=== PATIENT | female | born 1950 | race Caucasian/White ===

== ENCOUNTER 2019-09-13 13:07 | Outpatient (CLI) | payer MEDICARE, OTHER, SELFPAY ==
--- NOTE | 2019-09-13 13:30 | USCV_ITS ---
Lashay Castro Age: 69 Gender: F : 1950 Exam Date: 09/13/2019 13:46 Ordering Phys: Rhianna Chavez Technologist: Tiana Bello Exam Location: [facility] [place] Indication: HISTORY: spider veins bilateral ankle/calf. Bilateral leg pain. Multiple Sclerosis (per patient). Has been wearing compression stockings in recent past. Removed a few days prior to insufficiency study. PROCEDURES: Bilateral duplex Venous Insufficiency study of the Deep and Superficial systems was carried out according to normal protocol with the patient in supine positon for deep system and dependent position for the superficial system. FINDINGS: No DVT or superficial thrombus in right or left leg Right leg exhibits reflux in SFJ at 0.933 seconds. GSV appears very superficial. Left leg exhibits reflux in SFJ at 1.43 seconds and GSV BK segment at 5.54+ seconds. GSV becomes superfical at The veins were found to be easily compressible with spontaneous blood flow. Non pulsatile flow pattern. CONCLUSIONS No evidence of DVT in the above-mentioned identifiable veins. Significant venous reflux of greater than 500 ms was noted at the right saphenofemoral junction Significant venous reflux of greater than 500 ms were noted on the left side at the saphenofemoral junction and at the below-knee greater saphenous vein segment. No significant venous reflux were noted in the deep veins. The venous dimensions, depth from the surface and the reflux times are as mentioned above Dr Farrah Lua MD [facility] (Electronically Signed) Final Date: 14 September 2019 10:35 S
== END 2019-09-13 13:08 | disposition home or self-care (01) ==
PROVIDERS: Family Provider Family Medicine; PCP Family Medicine; Visit Provider Nurse Practitioner
DX: I83.893 Varicose veins of bilateral lower extremities with other complications (principal)
CPT/HCPCS: 93970

== ENCOUNTER 2019-09-17 07:26 | Outpatient (REF) | payer MEDICARE, OTHER, SELFPAY ==
[2019-09-17 13:31] LABS: Chol HDL Ratio 5.31 mg/dL (0.0-4.40); Cholesterol 154 mg/dL (0-200); Glucose 78 mg/dL (65-115); HDL Cholesterol 29 mg/dL (60-100); LDL Cholesterol Calculated 56 mg/dL (50-129); LDL HDL Ratio 1.93 RATIO (0.00-3.22); Triglycerides 346 mg/dL (0-150)
[2019-09-17 13:51] LABS: Estmated Average Glucose 123; Hemoglobin A1C 5.9 % (4.0-6.0)
== END 2019-09-17 07:27 | disposition home or self-care (01) ==
LOC: LAB 07:26
PROVIDERS: Family Provider Family Medicine; PCP Family Medicine; Visit Provider Dermatology
DX: Z01.89 Encounter for other specified special examinations (principal)
CPT/HCPCS: 80061; 82947; 83036

== ENCOUNTER → 2019-09-20 10:09 | Outpatient (BNVA) | payer MEDICARE, OTHER, SELFPAY | PROVIDERS: Family Provider Family Medicine; PCP Family Medicine; Visit Provider Specialist | DX: Z48.89 Encounter for other specified surgical aftercare (principal); Z96.653 Presence of artificial knee joint, bilateral | CPT/HCPCS: 73560; 73565 ==

== ENCOUNTER 2019-10-07 09:43 | Outpatient (CLI) | payer MEDICARE, OTHER, SELFPAY ==
--- NOTE | 2019-10-07 10:15 | USCV_ITS ---
Lashay Castro Age: 69 Gender: F : 1950 Exam Date: 10/07/2019 10:09 Ordering Phys: Fara Byrd Technologist: Tiana Bello Exam Location: [facility] [place]_ Indication: post venaseal RT GSV HISTORY: post right GSV venaseal PROCEDURES: Venous duplex imaging was performed in only the right lower extremity. On the right side, the common femoral, superficial femoral, profunda femoral, popliteal, posterior tibial, greater saphenous veins and the peroneal trunk were identified and interrogated in the standard fashion. These veins were found to be easily compressible with spontaneous blood flow. FINDINGS: No DVT. GSV appears to be ablated on the right from right HC area to groin. SFJ and epigastric veins appear patent. CONCLUSIONS No evidence of DVT in the above-mentioned identifiable veins. Patent saphenofemoral junction and the inferior epigastric vein The greater saphenous vein appears to be ablated, beyond the epigastric vein Dr Farrah Lua MD [facility] (Electronically Signed) Final Date: 08 October 2019 09:31 S
== END 2019-10-07 09:44 | disposition home or self-care (01) ==
LOC: US 09:44
PROVIDERS: Family Provider Family Medicine; PCP Family Medicine; Visit Provider Specialist/Technologist Athletic Trainer
DX: I83.893 Varicose veins of bilateral lower extremities with other complications (principal)
CPT/HCPCS: 93971

== ENCOUNTER 2019-10-15 09:44 | Outpatient (CLI) | payer MEDICARE, OTHER, SELFPAY ==
--- NOTE | 2019-10-15 09:52 | USCV_ITS ---
Castro Lashay Age: 69 Gender: F : 1950 Exam Date: 10/15/2019 10:06 Ordering Phys: Fara Byrd Technologist: Dev Schmidt Exam Location: [facility] [place]_ Indication: LT LEG POST ABLATION FINDINGS: The femoral, profunda femoral, popliteal, peroneal trunk posterior tibial veins were found to be easily compressible with spontaneous flow. CONCLUSIONS No evidence of DVT in the above-mentioned identifiable veins. The saphenofemoral junction and the inferior epigastric vein on the right side were found to be patent The greater saphenous vein appears to be ablated Dr Farrah Lua MD [facility] (Electronically Signed) Final Date: 15 October 2019 13:42 S
== END 2019-10-15 09:45 | disposition home or self-care (01) ==
LOC: US 09:45
PROVIDERS: Family Provider Family Medicine; PCP Family Medicine; Visit Provider Specialist/Technologist Athletic Trainer
DX: I83.893 Varicose veins of bilateral lower extremities with other complications (principal)
CPT/HCPCS: 93971

== ENCOUNTER → 2020-06-13 15:50 | Outpatient (BNVA) | payer MEDICARE, OTHER, SELFPAY | PROVIDERS: Family Provider Family Medicine; PCP Family Medicine; Visit Provider Podiatrist Foot & Ankle Surgery | DX: M79.671 Pain in right foot (principal); M79.672 Pain in left foot; M21.611 Bunion of right foot | CPT/HCPCS: 73630 ==

== ENCOUNTER 2020-07-10 15:27 | Outpatient (CLI) | payer MEDICARE, OTHER, SELFPAY | END 2020-07-10 15:28 | disposition home or self-care (01) | LOC: SPT 15:28 | PROVIDERS: Family Provider Family Medicine; PCP Family Medicine; Visit Provider Podiatrist Foot & Ankle Surgery | DX: Z46.89 Encounter for fitting and adjustment of other specified devices (principal); M21.41 Flat foot [pes planus] (acquired), right foot; M21.42 Flat foot [pes planus] (acquired), left foot | CPT/HCPCS: 97760; L3030 ==

== ENCOUNTER 2020-12-06 07:43 | Outpatient (CLI) | payer MEDICARE, OTHER, SELFPAY ==
[2020-12-06 08:19] VITALS: BMI 33.3
--- NOTE | 2020-12-06 08:23 | ECG_ITS ---
[facility] Test Date: 2020-12-06 Pat Name: Lashay Castro Department: Room: Gender: Female Train Engineer: : 1950 Requested By: Flores López Order Number: [id number] Marita MD: Paco Funes M.D. Interpretive Statements NAME OF STUDY: LEXISCAN SESTAMIBI STRESS TEST INDICATION: [Chest Pain] Procedure: At the baseline, the blood pressure was 146/65 mmHg with a heart rate of 68 bpm. The electrocardiogram showed normal sinus rhythm, normal axis with normal ST and T's. The Lexiscan was infused over a period of 20 seconds. A total of 0.4 mg of Lexiscan was infused. The stress phase was continued for a total of 5 minutes. Heart rate was at the end of stress phase was 82 bpm and a blood pressure of 148/81 mmHg. The EKG at the peak infusion revealed since normal sinus rhythm with no significant ST-T wave changes. Sestamibi was injected 20 seconds after the Lexiscan infusion. Blood pressure at the end of recovery phase was 128/87 mmHg with a heart rate of 83 bpm. Conclusion: 1. Normal EKG response to Lexiscan infusion 2. No Lexiscan induced chest pain or cardiac arrhythmia. 3. Normal blood pressure and heart rate response. 4. Sestamibi/sestamibi perfusion scan pending; see separate report. Electronically Signed On 12-16-2020 12:17:49 CDT by Paco Funes M.D. [id number]
--- NOTE | 2020-12-06 08:24 | NMCV_ITS ---
NM jong perf SPECT r/s* [id number] Lashay Castro Age: 70 Gender: F : 1950 Exam Date: 12/06/2020 09:19 Ordering Phys: Flores Lizama MD Technologist: KEISHA Mckeon Exam Location: [facility] Indications: CHEST PAIN STRESS TEST [facility] IMAGE PROTOCOL Rest/Stress 1 Lexiscan Day Radiopharmaceutical Dose (mCi) Administration Site Administered by Rest: Tc-99m 10.8 IV KEISHA Pearl Sestamibi Stress:Tc-99m 31.9 IV KEISHA Mckeon Sestamitimmy Rest: 06-Dec-2020 60 Discovery 630 Stress: 06-Dec-2020 30 Discovery 630 0.4mg Lexiscan. Images obtained in supine and prone position. SPECT RESULTS Technical Quality: Good Raw Data Analysis: Breast attenuation Image Corrections: No attenuation or motion correction applied Summed Stress Score: 3 Summed Rest Score: 1 Summed Difference Score: 2 PERFUSION FINDINGS There is a small in size, partially reversible, partially reversible perfusion defect of the apical lateral and mid lateral salazar. It likely represents prior small infarct with kinjal-infarct ischemia FUNCTIONAL RESULTS (calculated via Gated SPECT) Stress Image LV EF (%): 69 Stress EDV (mL):81 TID: 0.88 Stress ESV (mL):25 FUNCTIONAL FINDINGS: There is normal left ventricular systolic function. IMPRESSIONS 1. Abnormal myocardial perfusion imaging with partially reversible, small sized perfusion defect in apical lateral and mid lateral salazar. This is consistent with small prior infarct with periinfarct ischemia in the Left circumflex artery distribution 2. LV systolic function is normal Paco Funes MD (Electronically Signed) Final Date: 06 December 2020 12:21 S
[2020-12-06] MEDS: regadenoson 0.4 Mg/5 ml Syringe IVP (09:58)
[2020-12-06 10:07] VITALS: BP 128/87; PULSE 83
== END 2020-12-06 07:44 | disposition home or self-care (01) ==
LOC: CDL 07:46
PROVIDERS: PCP Family Medicine; Visit Provider Family Medicine
DX: R07.9 Chest pain, unspecified (principal)
CPT/HCPCS: 78452; 93017; A9500; J2785

== ENCOUNTER 2021-04-30 13:09 | Emergency (ER) | payer MEDICARE, OTHER, SELFPAY ==
[2021-04-30 13:47] VITALS: BP 104/68; PULSE 88; RESP 16; TEMP 37.7; O2SAT 91
--- NOTE | 2021-04-30 16:53 | XRR_ITS ---
PROCEDURE INFORMATION: Exam: XR Chest Exam date and time: 04/30/2021 4:53 PM Age: 70 years old Clinical indication: Cough and shortness of breath; Prior surgery TECHNIQUE: Imaging protocol: XR of the chest. Views: 1 view. COMPARISON: CR XR knees AP WB w RT lmt ORTH 09/20/2019 10:14 AM FINDINGS: Tubes, catheters and devices: Spinal stimulator. Lungs: Emphysematous changes. Bibasilar left greater than right atelectasis versus infiltrate. Pleural spaces: Unremarkable. No pleural effusion. No pneumothorax. Heart/Mediastinum: Unremarkable. No cardiomegaly. Bones/joints: Unremarkable. XR/XR chest 1V portable [id number] IMPRESSION: 1. Emphysematous changes. 2. Bibasilar left greater than right atelectasis versus infiltrate.
--- NOTE | 2021-04-30 16:54 | ED_ITS ---
HPI - COVID General: Chief Complaint: COVID symptoms Stated Complaint: COVID +/TROUBLE BREATHING Time Seen by Provider: 04/30/21 16:50 Triage information: No known COVID + exposure last 14 days History of Present Illness: HPI Narrative: This patient is a 70-year-old female who presents to the emergency department with complaints of shortness of breath and viral type syndrome. Patient states she was just diagnosed with Covid last week and symptoms started getting worse on Friday. Patient's O2 sat on room air is 92 to 95%. Will do medical evaluation treat as needed MD complaint: known COVID positive and has COVID symptoms COVID 19 common symptoms: positive dyspnea; negative fever(s), chills, non- productive cough, productive cough, fatigue, body aches, headache(s), throat pain, nausea or vomiting COVID 19 other sytmptoms: negative chest pain COVID Results: No Data to Display Review of Systems General: Reports: 10 or more systems reviewed and unremarkable except in HPI and below Const: Denies: fever(s), chills, body aches or fatigue Eyes: Denies: change in vision or blurry vision ENMT: Denies: throat pain, hoarseness or mouth pain Card: Denies: chest pain, palpitations, irregular heart rhythm, edema, swelling of feet/ankles or lightheadedness Resp: Reports: dyspnea; Denies: productive cough, non-productive cough, wheezing or pain on inspiration GI: Denies: abdominal pain, nausea or vomiting : Denies: flank pain, difficulty voiding, dysuria, urinary frequency, urinary urgency or urinary hesitancy Musc: Denies: neck pain, back pain, extremity pain, extremity swelling, joint pain, joint swelling, joint redness, joint warmth or limited range of motion Skin/Breast: Denies: rash, pruritus, erythema or skin tenderness Neuro: Denies: headache(s), numbness in extremities or weakness in extremities Psych: Denies: anxiety or depression PFS ED PFSH: Medical History (Updated 04/30/21 @ 17:39 by Ned Childs MD) COPD (chronic obstructive pulmonary disease) Diverticulosis Dysphagia Keratosis Multiple sclerosis Obstructive sleep apnea PVD (peripheral vascular disease) Venous insufficiency of both lower extremities Surgical History History of adenoidectomy (~1970) History of appendectomy History of arthroscopy of knee (~2010) Left History of bunionectomy (~2013) left History of carpal tunnel release History of colon resection History of colonoscopy (07/12/19) 07/12/19 Repeat in 10 years History of esophagogastroduodenoscopy (EGD) (07/12/19) 07/12/19 History of hysterectomy History of knee replacement (09/03/06) Right History of neck surgery History of Pepper fundoplication History of shoulder surgery History of tonsillectomy (~1970) Family History Sister Cancer Family/Other Cancer Maternal Aunt Family/Other Cancer Paternal Uncle Father Diabetes Other Heart disease Denies family history of Anesthesia complication Bleeding disorder Social History Smoking and tobacco status: former smoker Alcohol intake: current Alcohol intake frequency: holidays/special occasions only Lives independently: Yes Household members: spouse Marital status: Current occupational status: retired Physical Exam Const: COMMON NORMALS: no acute distress, average body habitus, patient oriented x3, no limitations, healthy appearing, alert and well nourished HENMT: COMMON NORMALS: normocephalic, atraumatic, hearing grossly normal bilaterally, external ears normal, EAC's normal, TM's normal bilaterally, Normal external nose present, Normal nasal mucous membranes and turbinates present, moist oral mucous membranes, oropharynx normal, dentition normal and gingiva normal HEAD & SCALP: normocephalic and atraumatic NOSE: Normal external nose present and Normal nasal mucous membranes and turbinates present EXTERNAL EAR: Yes external ears normal EXTERNAL AUDITORY CANAL: EAC's normal TYMPANIC MEMBRANE: TM's normal bilaterally Neck/C-Spine: COMMON NORMALS: full ROM, no lymphadenopathy, supple, no meningeal signs, no JVD, Thyroid normal and No carotid bruits THYROID: Thyroid normal Chest: COMMONS NORMALS: normal inspection of the chest, normal palpation of entire chest wall, normal inspection of the breasts and normal palpation of the breasts Breast/axilla inspection: Yes normal inspection of the breasts BREAST/AXILLA PALPATION: Yes normal palpation of the breasts Resp: COMMON NORMALS: normal respiratory effort, No retractions, No use of accessory muscles, clear to auscultation bilaterally and percussion normal AUSCULTATION: clear to auscultation bilaterally PERCUSSION: percussion normal Cardio: COMMON NORMALS: no JVD, regular rate, regular rhythm, S1 normal heart sound present, S2 normal heart sound present, No gallops present (Cardio), No clicks present (Cardio), No murmurs present (Cardio), No rub (Cardio) and Peripheral pulses 2+ throughout RATE: regular rate RHYTHM: regular rhythm HEART SOUNDS: S1 normal heart sound present and S2 normal heart sound present PERIPHERAL PULSES: Peripheral pulses 2+ throughout GI: COMMON NORMALS: Normal to inspection, nondistended, normoactive bowel rené nds present, Soft to palpation, non-tender, No hepatosplenomegaly present, no masses and no bruits PALPATION: Yes Soft to palpation and Yes No hepatosplenomegaly present Back/Pelvis: COMMON NORMALS: thoracic and lumbar spine normal to inspection, no thoracic nor lumbar tenderness, thoraco-lumbar ROM normal and straight leg raise negative bilaterally Extremity: COMMON NORMALS: normal to inspection, full ROM, capillary refill normal, no joint enlargement, no clubbing, cyanosis or edema, no calf tenderness and no pedal edema Neuro: COMMON NORMALS: patient oriented x3 SENSORIUM/ORIENTATION: Yes alert MENINGEAL SIGNS: Yes no meningeal signs Course Reevaluation(s): Reevaluation #1: Patient is stable with COVID-19. Patient's pulse ox continues to maintain around 93 to 95% on room air. Chest x-ray consistent with COVID-19. Patient will be discharged home with cool-mist humidifier. Albuterol puff inhaler as instructed. Continue drink plenty of fluids and follow-up with PCP in 2 to 3 days. Get plenty rest. Tylenol Motrin as needed for fever pain. Time: 17:38 Vital Signs: Vital signs: Vital Signs Temperature 98.6 F 04/30/21 17:19 Pulse Rate 85 04/30/21 17:19 Respiratory Rate 20 H 04/30/21 17:19 Blood Pressure 144/81 04/30/21 17:19 Pulse Oximetry 93 04/30/21 17:26 MDM - COVID MDM Narrative: Medical decision making narrative: Patient is stable with COVID-19. Patient's pulse ox continues to maintain around 93 to 95% on room air. Chest x-ray consistent with COVID-19. Patient will be discharged home with cool-mist humidifier. Albuterol puff inhaler as instructed. Continue drink plenty of fluids and follow-up with PCP in 2 to 3 days. Get plenty rest. Tylenol Motrin as needed for fever pain. Medical Records: Attestation: I reviewed the patient's medical records. Lab Data: Attestation: I reviewed the patient's lab results. Imaging Data: CXR: Attestation: I personally reviewed and interpreted this imaging study as follows: Radiologist's impression: Patchy Infiltrate consistant with COVID COVID Results: No Data to Display Discharge Plan Discharge Patient Disposition: Home Clinical Impression: Upper respiratory infection, COVID-19 Condition: Stable Prescriptions: New albuterol sulfate 90 mcg/actuation HFA aerosol inhaler 2 puff inhalation Q4H PRN (Reason: shortness of breath or wheezing) Qty: 8.5 RF: 0 No Action ondansetron HCl [Zofran] 4 mg tablet 4 mg PO Q6H PRNRF: 0 pantoprazole [Protonix] 40 mg tablet,delayed release (DR/EC) 40 mg PO ONCE RF: 0 jfppjsyqvkmr-evofuquuz-pijigba 6.25-5-10 mg/5 mL syrup 5 ml PO ONCE RF: 0 tramadol 50 mg tablet 50 mg PO .COMPLEX RF: 0 venlafaxine 25 mg tablet 25 mg PO ONCE RF: 0 biotin 100 mg/gram powder PO RF: 0 Dexilant 30 mg capsule,biphase delayed releas 30 mg PO ONCE RF: 0 acetaminophen 500 mg capsule 500 mg PO .COMPLEX RF: 0 diltiazem HCl [Cartia XT] 300 mg capsule,extended release 24hr 300 mg PO QAM RF: 0 Combivent Respimat 20-100 mcg/actuation mist 1 puff INHALATION .COMPLEX RF: 0 fluticasone propionate 50 mcg/actuation spray,suspension 1 spray INTRANASAL .COMPLEX PRNRF: 0 furosemide 20 mg tablet 20 mg PO QAM RF: 0 losartan 25 mg tablet 25 mg PO ONCE RF: 0 Myrbetriq 25 mg tablet extended release 24 hr 25 mg PO Q24H RF: 0 potassium chloride 10 mEq capsule, extended release 10 meq PO ONCE RF: 0 Restasis 0.05 % dropperette 1 drop ophthalmic (eye) Q12H RF: 0 cholecalciferol (vitamin D3) 5,000 unit capsule 5,000 unit PO ONCE RF: 0 (DME) Sole supports See Rx Instructions .Route .MEDSUPPLY Qty: 1 RF: 0 Discharge Orders: Discharge ED (Routine); Ordered 04/30/21 Ordered By: Ned Childs Referrals: Flores Lizama MD [Primary Care Provider] - Discharge Diet: Advance as tolerated Discharge Activity: Resume usual activity Patient Instructions: Opioid Safety Activity Restrictions/Additional Instructions: Patient will be discharged home with cool-mist humidifier. Albuterol puff inhaler as instructed. Continue drink plenty of fluids and follow-up with PCP in 2 to 3 days. Get plenty rest. Tylenol Motrin as needed for fever pain. Coding Level of Care Code ED Branding Machine Tender for Derick Fwd Exam Comprehensive
[2021-04-30 17:19] VITALS: BP 144/81; PULSE 85; RESP 20; TEMP 37; O2SAT 93
[2021-04-30 17:26] VITALS: O2SAT 93
[2021-04-30] MEDS: dexamethasone 10 mg/mL INJ IM (17:34)
[2021-04-30 17:50] VITALS: PULSE 78; RESP 18; O2SAT 93
[2021-04-30] MEDS: albuterol 8 gm MDI 2 PUFF INHALATION (18:03)
[2021-04-30 18:05] VITALS: PULSE 80
[2021-04-30 18:20] VITALS: BP 145/75; PULSE 88; RESP 20; TEMP 36.8; O2SAT 93
== END 2021-04-30 18:39 | disposition home or self-care (01) ==
PROVIDERS: Emergency Provider Emergency Medicine; PCP Family Medicine
DX: U07.1 COVID-19 (principal); J44.9 Chronic obstructive pulmonary disease, unspecified; G35 Multiple sclerosis; Z87.891 Personal history of nicotine dependence
CPT/HCPCS: 71045; 94640; 96372; 99283; J1100; J3535

== ENCOUNTER 2021-05-01 07:47 | Outpatient (CLI) | payer MEDICARE, OTHER, SELFPAY ==
[2021-05-01 08:00] VITALS: BP 101/65; PULSE 65; RESP 22; TEMP 36.4; O2SAT 93; BMI 32.3
[2021-05-01 08:35] VITALS: BP 98/63; PULSE 66; RESP 22; TEMP 36.4; O2SAT 90
[2021-05-01 09:35] VITALS: BP 106/63; PULSE 55; RESP 22; TEMP 36.4
== END 2021-05-01 07:48 | disposition home or self-care (01) ==
LOC: OPS 07:52
PROVIDERS: PCP Family Medicine; Visit Provider Family Medicine
DX: U07.1 COVID-19 (principal)
CPT/HCPCS: 96365

== ENCOUNTER 2021-06-19 13:24 | Outpatient (CLI) | payer MEDICARE, OTHER, SELFPAY ==
--- NOTE | 2021-06-19 13:33 | MM_ITS ---
WS: [id number] BILATERAL SCREENING DIGITAL MAMMOGRAM WITH CAD HISTORY: SCREENING COMPARISON: 05/04/2020, 11/02/2018 and 09/04/2017 Bilateral CC and MLO views submitted. Computer aided detection analyzed. Breast composition: There are scattered areas of fibroglandular density. No suspicious masses, microc alcifications or architectural distortion. There are numerous calcifications and scattered stable nod ules throughout each breast. MM/[place] [id number] IMPRESSION: BI-RADS: 2-Benign FOLLOW UP: 1 Year Follow-up
== END 2021-06-19 13:25 | disposition home or self-care (01) ==
PROVIDERS: PCP Family Medicine; Visit Provider Family Medicine
DX: Z12.31 Encounter for screening mammogram for malignant neoplasm of breast (principal)
CPT/HCPCS: 77067

== ENCOUNTER → 2023-03-03 15:02 | Outpatient (BNVA) | payer MEDICARE, OTHER, SELFPAY | PROVIDERS: PCP Family Medicine; Visit Provider Podiatrist Foot & Ankle Surgery | DX: M20.41 Other hammer toe(s) (acquired), right foot (principal); M20.42 Other hammer toe(s) (acquired), left foot | CPT/HCPCS: 99213 ==

== ENCOUNTER → 2023-04-04 08:02 | Outpatient (BNVA) | payer MEDICARE, OTHER, SELFPAY | PROVIDERS: PCP Family Medicine; Visit Provider Nurse Practitioner Family | DX: L80 Vitiligo (principal); L30.4 Erythema intertrigo; L82.0 Inflamed seborrheic keratosis; D18.01 Hemangioma of skin and subcutaneous tissue; L82.1 Other seborrheic keratosis; L57.8 Other skin changes due to chronic exposure to nonionizing radiation; L85.3 Xerosis cutis; L81.4 Other melanin hyperpigmentation | CPT/HCPCS: 17110; 99204 ==

== ENCOUNTER → 2023-04-07 16:20 | Outpatient (BNVA) | payer MEDICARE, OTHER, SELFPAY | PROVIDERS: PCP Family Medicine; Visit Provider Internal Medicine Cardiovascular Disease | DX: R07.9 Chest pain, unspecified (principal); R00.0 Tachycardia, unspecified; G47.33 Obstructive sleep apnea (adult) (pediatric); J44.9 Chronic obstructive pulmonary disease, unspecified; I10 Essential (primary) hypertension; R07.89 Other chest pain | CPT/HCPCS: 93005; 99204 ==

== ENCOUNTER → 2023-06-16 12:30 | Outpatient (BNVA) | payer MEDICARE, OTHER, SELFPAY | PROVIDERS: PCP Family Medicine; Visit Provider Nurse Practitioner Family | DX: I10 Essential (primary) hypertension (principal); Z87.891 Personal history of nicotine dependence | CPT/HCPCS: 99213 ==

== ENCOUNTER → 2023-06-18 07:25 | Outpatient (BNVA) | payer MEDICARE, OTHER, SELFPAY | PROVIDERS: PCP Family Medicine; Visit Provider Podiatrist Foot & Ankle Surgery | DX: M79.2 Neuralgia and neuritis, unspecified (principal); M20.41 Other hammer toe(s) (acquired), right foot; M20.42 Other hammer toe(s) (acquired), left foot | CPT/HCPCS: 64450; J1100; J3490 ==

== ENCOUNTER → 2023-07-07 08:28 | Outpatient (BNVA) | payer MEDICARE, OTHER, SELFPAY | PROVIDERS: PCP Family Medicine; Visit Provider Nurse Practitioner Family | DX: L30.4 Erythema intertrigo (principal); L82.0 Inflamed seborrheic keratosis; L82.1 Other seborrheic keratosis; D22.5 Melanocytic nevi of trunk; L81.4 Other melanin hyperpigmentation; L57.8 Other skin changes due to chronic exposure to nonionizing radiation; L80 Vitiligo | CPT/HCPCS: 17110; 99214 ==

== ENCOUNTER → 2023-07-22 14:24 | Outpatient (BNVA) | payer MEDICARE, OTHER, SELFPAY | PROVIDERS: PCP Family Medicine; Visit Provider Internal Medicine Cardiovascular Disease | DX: R00.0 Tachycardia, unspecified (principal); M79.89 Other specified soft tissue disorders; I10 Essential (primary) hypertension; J44.9 Chronic obstructive pulmonary disease, unspecified; Z87.891 Personal history of nicotine dependence | CPT/HCPCS: 99214 ==

== ENCOUNTER → 2023-09-24 07:54 | Outpatient (BNVA) | payer MEDICARE, OTHER, SELFPAY | PROVIDERS: PCP Family Medicine; Visit Provider Podiatrist Foot & Ankle Surgery | DX: M20.41 Other hammer toe(s) (acquired), right foot (principal); M20.42 Other hammer toe(s) (acquired), left foot; M79.2 Neuralgia and neuritis, unspecified | CPT/HCPCS: 99213 ==

== ENCOUNTER → 2023-10-01 13:59 | Outpatient (BNVA) | payer MEDICARE, OTHER, SELFPAY | PROVIDERS: PCP Family Medicine; Visit Provider Podiatrist Foot & Ankle Surgery | DX: M79.2 Neuralgia and neuritis, unspecified (principal); M20.41 Other hammer toe(s) (acquired), right foot; M20.42 Other hammer toe(s) (acquired), left foot | CPT/HCPCS: 64450 ==

== ENCOUNTER → 2023-11-19 07:57 | Outpatient (BNVA) | payer MEDICARE, OTHER, SELFPAY | PROVIDERS: PCP Family Medicine; Visit Provider Podiatrist Foot & Ankle Surgery | DX: M20.41 Other hammer toe(s) (acquired), right foot (principal); M20.42 Other hammer toe(s) (acquired), left foot; M79.2 Neuralgia and neuritis, unspecified | CPT/HCPCS: 99213 ==

== ENCOUNTER → 2024-01-20 13:45 | Outpatient (BNVA) | payer MEDICARE, OTHER, SELFPAY | PROVIDERS: PCP Family Medicine; Visit Provider Internal Medicine Cardiovascular Disease | DX: R00.0 Tachycardia, unspecified (principal); I10 Essential (primary) hypertension; J44.9 Chronic obstructive pulmonary disease, unspecified; G47.33 Obstructive sleep apnea (adult) (pediatric); Z87.891 Personal history of nicotine dependence | CPT/HCPCS: 99214 ==

== ENCOUNTER → 2024-03-31 08:52 | Outpatient (BNVA) | payer MEDICARE, OTHER, SELFPAY | PROVIDERS: PCP Family Medicine; Visit Provider Specialist | DX: Z96.643 Presence of artificial hip joint, bilateral (principal) | CPT/HCPCS: 73560; 73565 ==

== ENCOUNTER 2024-03-31 10:15 | Outpatient (CLI) | payer MEDICARE, OTHER, SELFPAY | END 2024-03-31 10:16 | disposition home or self-care (01) | LOC: SPT 10:17 | PROVIDERS: PCP Family Medicine; Visit Provider Specialist | DX: Z47.89 Encounter for other orthopedic aftercare (principal); Z96.659 Presence of unspecified artificial knee joint; M25.562 Pain in left knee | CPT/HCPCS: 97760; L1812 ==

== ENCOUNTER → 2024-04-26 11:22 | Outpatient (BNVA) | payer MEDICARE, OTHER, SELFPAY | PROVIDERS: PCP Family Medicine; Visit Provider Podiatrist Foot & Ankle Surgery | DX: M20.41 Other hammer toe(s) (acquired), right foot (principal); M20.42 Other hammer toe(s) (acquired), left foot; M79.2 Neuralgia and neuritis, unspecified; T84.84XA Pain due to internal orthopedic prosthetic devices, implants and grafts, initial encounter; Q82.8 Other specified congenital malformations of skin; Y79.2 Prosthetic and other implants, materials and accessory orthopedic devices associated with adverse incidents | CPT/HCPCS: 99213 ==

== ENCOUNTER 2024-05-05 07:38 | Outpatient (CLI) | payer MEDICARE, OTHER, SELFPAY ==
--- NOTE | 2024-05-05 08:00 | NM_ITS ---
WS: [id number] THREE-PHASE NUCLEAR MEDICINE BONE SCAN Radiopharmaceutical: 26.2 Tc-99m MDP mCi IV Injection site: Antecubital Postinjection imaging delay: 2 hr CLINICAL INFORMATION: left total knee arthroplasty COMPARISON: Bone scan 2019 FINDINGS: Normal blood flow and blood pool images. No evidence of asymmetric blood flow or blood pool activity. No abnormal foci of increased uptake on the delayed bone imaging. Normal increased periprosthetic ac tivity. No evidence of loosening or infection. Appearance is similar to the prior three-phase bone sc an 2019. Bone lesions: Bilateral TKA's. Soft tissue contours: Normal. Kidneys: Normal. Other findings: S-shaped thoracolumbar scoliosis. NM/NM bone 3 phase [id number] IMPRESSION: Normal three-phase bone scan
== END 2024-05-05 07:39 | disposition home or self-care (01) ==
LOC: RAD 07:38
PROVIDERS: PCP Family Medicine; Visit Provider Specialist
DX: Z96.659 Presence of unspecified artificial knee joint (principal)
CPT/HCPCS: 78315; A9561

== ENCOUNTER → 2024-05-12 09:09 | Outpatient (BNVA) | payer MEDICARE, OTHER, SELFPAY | PROVIDERS: PCP Family Medicine; Visit Provider Specialist | DX: M23.52 Chronic instability of knee, left knee (principal); Z96.653 Presence of artificial knee joint, bilateral | CPT/HCPCS: 99214 ==

== ENCOUNTER → 2024-05-19 09:19 | Outpatient (BNVA) | payer MEDICARE, OTHER, SELFPAY | PROVIDERS: PCP Family Medicine; Visit Provider Podiatrist Foot & Ankle Surgery | DX: M20.41 Other hammer toe(s) (acquired), right foot (principal); M20.42 Other hammer toe(s) (acquired), left foot; M79.2 Neuralgia and neuritis, unspecified; T84.84XA Pain due to internal orthopedic prosthetic devices, implants and grafts, initial encounter; Q82.8 Other specified congenital malformations of skin; Y79.2 Prosthetic and other implants, materials and accessory orthopedic devices associated with adverse incidents | CPT/HCPCS: 99213 ==

== ENCOUNTER → 2024-05-31 12:42 | Outpatient (BNVA) | payer MEDICARE, OTHER, SELFPAY | PROVIDERS: PCP Family Medicine; Visit Provider Podiatrist Foot & Ankle Surgery | DX: M79.2 Neuralgia and neuritis, unspecified (principal); T84.84XA Pain due to internal orthopedic prosthetic devices, implants and grafts, initial encounter; Q82.8 Other specified congenital malformations of skin; M20.41 Other hammer toe(s) (acquired), right foot; M20.42 Other hammer toe(s) (acquired), left foot; Y79.2 Prosthetic and other implants, materials and accessory orthopedic devices associated with adverse incidents | CPT/HCPCS: 99214 ==

== ENCOUNTER 2024-06-11 09:01 | Day surgery (SDC) | payer MEDICARE, OTHER, SELFPAY ==
[2024-06-11] VITALS (8 sets, daily range): BP systolic 120–163; BP diastolic 65–93; PULSE 71–79; RESP 16–18; TEMP 36.1–36.4; O2SAT 95–97; BMI 29.1
[2024-06-11] MEDS: sodium chloride 0.9% 1,000 ML 30 ML IV (09:39)
--- NOTE | 2024-06-11 10:21 | PM.OP ---
Operative Report Date of procedure: June 11, 2024 Pre-op diagnosis: Hammer toes of both feet M20.41; M20.42 Neuritis M79.2 Painful orthopaedic hardware T84.84XA Porokeratosis Q82.8 Post-op diagnosis: Hammer toes of both feet M20.41; M20.42 Neuritis M79.2 Painful orthopaedic hardware T84.84XA Porokeratosis Q82.8 Procedure done: 1) hardware removal left great toe. CPT code 36182 2) hardware left first metatarsal. CPT code 08125 3) hardware removal left fourth toe. CPT code 65784 4) partial resection of distal phalanx left fourth toe. CPT code 18142 Implants: 3-0 Vicryl, 4-0 Vicryl, 4 nylon Surgeon: Denton Leach DPM Manager User Interface: Brittany Estimated blood loss: 2 mL See intraoperative documentation IV fluids: see intraoperative documentation Brief History: Pleasant 74-year-old female comes with multiple chief complaints, she complains of painful hardware at the left great toe, left first metatarsal phalangeal joint fusion site and at the left fourth toe requesting hardware removal as she has failed to alleviate pain with accommodative shoes, lotions, creams, anti-inflammatories both topically and orally and activity modifications, she also wants to discuss excision of painful lesion at the left first toe and fourth toe. I reviewed at length with the patient, the risks, potential complications, benefits, alternatives, expectations, and typical outcomes associated with the surgery. The risks and potential complications were explained in detail, including but not limited to infection, wound dehiscence or soft tissue complications, bleeding and hematoma, chronic edema, neuritis or nerve damage producing numbness or chronic pain, CRPS, failure to relieve pain or worsening pain, thick / painful / unsightly scar, limited motion / stiffness, malposition, delayed union, malunion, or nonunion, fracture, reaction to implants, anesthetic complications, venous thromboembolism, and deformity recurrence. I discussed the notion of no regrets with the patient as it pertains to complications and outcomes. The patient seemed to understand the nature of the proposed care and required convalescence. They asked appropriate questions, answered to their satisfaction. They are aware no guarantees can be made as to a satisfactory outcome and they understand there may be other possible unforeseen complications or outcomes not listed here that will be treated accordingly if they arise. There were no written or implied guarantees given to the patient. They gave informed consent to proceed. Hardware removal x 3 left foot, partial phalangectomy left fourth toe distal phalanx. Procedure: Under mild sedation the patient was brought to the operating room and remained on the gurney in supine position. A timeout was performed. Anesthesia was then administered by the anesthesia service. Local anesthesia was injected by myself consisting of 20 cc of 0.25% Marcaine in a left male block and fourth toe block with an additional 20 cc of Exparel infiltrated subcutaneously in a grid like fashion proximal to the operative site left foot. Well-padded pneumatic tourniquet applied to the left ankle. Left lower extremity was scrubbed, prepped and draped utilizing normal aseptic technique. Left foot was exanguinated with an Esmarch bandage and tourniquet inflated to 250 mmHg. Attention was directed to the distal aspect of the left great toe where an incision was made through skin and carried down to hardware screw head was identified and utilizing a hand highway truck driver a screw was removed from the distal phalanx and proximal phalanx of the left great toe in total without fragmentation or failure. The incision was irrigated with copious amounts of sterile skin solution and closed with 4-0 nylon. Screw was passed to the back table. Attention was then directed to the distal phalanx at the distal tuft of the left fourth toe where an incision was performed down through skin with a #15 blade with dissection carried down to the layer of screw head and hardware was identified, the screw was backed out in total by hand and passed from the operative field, no fragmentation or failure of the left fourth toe screw being removed from bone. The incision was irrigated with saline solution. Attention was then directed to the distal phalanx of the left fourth toe which was transected with a rongeur, partial distal phalangectomy was performed and the incision was irrigated with saline solution and closed with 4-0 nylon. Attention was then directed to the dorsal aspect of the left first metatarsal where a linear longitudinal incision made over previous cicatrix with dissection carried down to through subcutaneous tissue to the layer of hardware this was a plate and 7 screws all were removed in total and explanted without failure or fragmentation and passed from operative field. All rough edges were smoothed, union was appreciated at the arthrodesis site first metatarsal phalangeal joint. Incision was irrigated with saline solution and closed with a layered fashion with 3-0 Vicryl at periosteum, 4-0 Vicryl subcutaneous tissue and 4-0 nylon on skin. All incisions were dressed with Adaptic, sterile 4 x 4, Kerlix and Gamaliel wrap followed by application of postop shoe and the tourniquet was then deflated with a prompt hyperemic response noted to the distal digits of all 5 toes left foot. Patient tolerated the procedure and anesthesia well and was transferred to the PACU with vital signs stable and vascular status intact. Following a period of postoperative monitoring she will be discharged home may be weightbearing as tolerated was given at home care instructions and scheduled follow-up.
--- NOTE | 2024-06-11 10:47 | ANES.PREANE2 ---
Pre-Anesthetic Assessment Height/Weight: Height 1.65 m Weight 79.379 kg Temp Pulse Resp BP Pulse Ox O2 Del Method 97.2 F L 72 16 148/93 97 Room Air 06/11/24 09:15 06/11/24 09:15 06/11/24 09:15 06/11/24 09:15 06/11/24 09:15 06/11/24 09:15 Preop Diagnosis: Painful hardware and porokeratosis left foot. Operation Date: 06/11/24 10:40 Proposed Procedures p Hardware removal left great toe, Hardware left first metatarsal, Hardware removal left fourth toe(Left) - Denton Leach DPM s Partial resection of distal phalanx left fourth toe.(Left) - Denton Leach DPM Familial anesthetic complications: None Was Beta Edmar taken within 24 hours: N/A Was Clonidine taken within 24 hours: N/A Last intake: Intake Last Liquid Date 06/10/24 Last Liquid Time 21:00 Last Solid Date 06/09/24 Last Solid Time 16:30 Social No alcohol and No tobacco Exam alert, oriented x 3, clear to auscultation bilaterally and regular rate & rhythm Airway Mallampati: Class I Dentition: false Pulmonary Chronic Obstructive Pulmonary Disease and Sleep Apnea CV/HEM Stable Angina, Arrythmia and Hypertension Neuropsych multiple sclerosis Anesthetic Plan ASA status: 3 Anesthesia: MAC Risk of > 500 ml blood loss (7ml/kg in children): No Medications/Allergies Home Medications Medication Instructions Recorded Confirmed Last Taken Type cholecalciferol (vitamin D3) 125 5,000 unit PO ONCE 08/17/19 06/11/24 06/10/24 History mcg (5,000 unit) capsule furosemide 20 mg tablet 20 mg PO QAM 08/17/19 06/11/24 06/10/24 History mirabegron 25 mg tablet,extended 25 mg PO Q24H 08/17/19 06/11/24 06/10/24 History release 24 hr (Myrbetriq) potassium chloride 10 mEq 10 meq PO ONCE 08/17/19 06/11/24 06/10/24 History capsule,extended release Sole supports #1 ea 06/13/20 05/31/24 Unknown Rx vitamin [id number] B1 1,000 See Rx Instructions .Route .COMPLEX 04/07/23 06/11/24 05/21/24 History mcg-100 mg/mL injection solution dexlansoprazole 30 mg 30 mg PO DAILY 07/22/23 06/11/24 06/10/24 History capsule,biphase delayed release (Dexilant) diltiazem HCl 300 mg 180 mg PO QAM 07/22/23 06/11/24 06/10/24 History capsule,extended release 24 hr (Cartia XT) Hinged knee brace #1 ea 03/31/24 05/31/24 Unknown Rx Allergies Allergy/AdvReac Type Severity Reaction Status Date / Time acetaminophen Allergy Unknown Verified 06/11/24 09:11 [From Darvocet-N 100] carbamazepine Allergy Unknown Verified 06/11/24 09:11 cephalexin [From Keflex] Allergy Unknown Verified 06/11/24 09:11 codeine Allergy Unknown Verified 06/11/24 09:11 gabapentin [From Neurontin] Allergy Unknown Verified 06/11/24 09:11 Influenza Virus Vaccines Allergy Unknown Verified 06/11/24 09:11 penicillin G Allergy Unknown Verified 06/11/24 09:11 propoxyphene Allergy Unknown Verified 06/11/24 09:11 [From Darvocet-N 100] Current Medications Generic Name Dose Route Start Last Admin Trade Name Freq PRN Reason Stop Dose Admin Sodium Chloride 1,000 mls @ 30 mls/hr 06/11/24 09:15 06/11/24 09:39 Sodium Chloride 0.9% IV 06/12/24 09:14 30 mls/hr .Q24H SHAHID Administration PFSH Anesthesia Medical History COPD (chronic obstructive pulmonary disease) PVD (peripheral vascular disease) Dysphagia Multiple sclerosis Obstructive sleep apnea Keratosis Venous insufficiency of both lower extremities Diverticulosis Surgical History History of arthroscopy of knee (~2010) Left History of knee replacement (09/03/06) Right History of hysterectomy History of tonsillectomy (~1970) History of adenoidectomy (~1970) History of appendectomy History of carpal tunnel release History of shoulder surgery History of colon resection History of neck surgery History of Pepper fundoplication History of bunionectomy (~2013) left History of colonoscopy (07/12/19) 07/12/19 Repeat in 10 years History of esophagogastroduodenoscopy (EGD) (07/12/19) 07/12/19 Family History Sister Cancer Family/Other Cancer Maternal Aunt Family/Other Cancer Paternal Uncle Father Diabetes Other Heart disease Denies family history of Anesthesia complication Bleeding disorder Social History Smoking and tobacco/nicotine status: never used tobacco/nicotine Alcohol intake: current Alcohol intake frequency: holidays/special occasions only Substance/Drug Use: never Lives independently: Yes Household members: spouse Marital status: Current occupational status: retired Data Anesthesia Cardiac Studies: Sestamibi Stress Test (Cardiology) 12/06/20 Cardiac Event Monitor 04/07/23 Holter Monitor 09/03/19
--- NOTE | 2024-06-11 11:36 | P.HPUD_ITS ---
Surgery/Procedure H&P Update DATE OF PROCEDURE: June 11, 2024 DATE H&P PERFORMED: 05/27/24 H&P UPDATE INFORMATION: I have reviewed H&P completed within last 30 days, I have examined patient prior to procedure, No changes to prior documentation and H&P is in [facility] on date indicated PREOP DIAGNOSIS: Painful hardware and porokeratosis left foot. PLANNED PROCEDURE: Operation Date: 06/11/24 10:40 Proposed Procedures p Hardware removal left great toe, Hardware left first metatarsal, Hardware removal left fourth toe(Left) - Denton Leach DPM s Partial resection of distal phalanx left fourth toe.(Left) - Denton Leach DPM
[2024-06-11] MEDS: clindamycin 600 MG/50 ML PREMIX 100 MG IV (11:57)
[2024-06-11] MEDS: BUPivacaine 0.5% INJ 10 mL 20 ML INJECTION (12:19)
[2024-06-11] MEDS: BUPivacaine liposome 13.3 mg/mL SDV 20 mL 266 MG INJECTION (12:19)
--- NOTE | 2024-06-11 12:36 | W.PM.BPON ---
Date of Procedure: 10/24/23 Surgeon: Denton Leach DPM Sewing Demonstrator(s): Tino Whaley Procedure(s) performed: Hardware removal left foot. Partial phalangectomy left foot. Findings of the procedure(s): None Estimated blood loss: 1 mL Specimen(s) removed: 9 screws 1 plate Post-operative diagnosis: Painful hardware and painful lesion left foot Local MACjimi, supine, tourniquet time 19 minutes
--- NOTE | 2024-06-11 13:39 | ANE.PACU2 ---
Inpatient post-anesthesia follow up: Airway intact: Yes Vital signs: Temperature 97.0 F Pulse Rate 73 Respiratory Rate 16 Blood Pressure 141/89 Pulse Oximetry 97 Oxygen Delivery Me thod Room Air Oxygen Flow Rate 6 Fraction of Inspir ed Oxygen Hydration adequate: Yes Nausea and vomiting: No Pain level: 1 Mental status: Baseline
== END 2024-06-11 13:30 | disposition home or self-care (01) ==
PROVIDERS: PCP Family Medicine; Visit Provider Podiatrist Foot & Ankle Surgery
PROC: (CPT 20680; principal; 2024-06-11 10:30)
PROC: (CPT 28140; 2024-06-11 10:30)
DX: M20.41 Other hammer toe(s) (acquired), right foot (principal); M20.42 Other hammer toe(s) (acquired), left foot; M79.2 Neuralgia and neuritis, unspecified; T84.84XA Pain due to internal orthopedic prosthetic devices, implants and grafts, initial encounter; Y82.8 Other medical devices associated with adverse incidents; Q82.8 Other specified congenital malformations of skin; J44.9 Chronic obstructive pulmonary disease, unspecified; G47.30 Sleep apnea, unspecified; I10 Essential (primary) hypertension; G35 Multiple sclerosis
CPT/HCPCS: 20680 ×3; 28153; C9290; J2704; J3010; J3490; J7030; L3260

== ENCOUNTER → 2024-06-24 10:01 | Outpatient (BNVA) | payer MEDICARE, OTHER, SELFPAY | PROVIDERS: PCP Family Medicine; Visit Provider Podiatrist Foot & Ankle Surgery | DX: Z98.890 Other specified postprocedural states (principal) | CPT/HCPCS: 99024 ==

== ENCOUNTER → 2024-07-07 12:41 | Outpatient (BNVA) | payer MEDICARE, OTHER, SELFPAY | PROVIDERS: PCP Family Medicine; Visit Provider Internal Medicine Cardiovascular Disease | DX: R06.02 Shortness of breath (principal) | CPT/HCPCS: 36415; 80048; 83880; 99214 ==

== ENCOUNTER → 2024-07-21 09:08 | Outpatient (BNVA) | payer MEDICARE, OTHER, SELFPAY | PROVIDERS: PCP Family Medicine; Visit Provider Podiatrist Foot & Ankle Surgery | DX: Z98.890 Other specified postprocedural states (principal) | CPT/HCPCS: 99024 ==

== ENCOUNTER 2024-07-27 09:06 | Outpatient (CLI) | payer MEDICARE, OTHER, SELFPAY ==
--- NOTE | 2024-07-27 09:15 | USCV_ITS ---
Lashay Castro Age: 74 Gender: F : 1950 Exam Date: 07/27/2024 09:20 Ordering Phys: Farrah Lua MD ([email or web address]) Technologist: CT Exam Location: [facility] [place] Indication: cp BP: 120 / 70 HR: 72 Rhythm: Sinus Technical Quality: Adequate MEASUREMENTS (Male / Female) Normal Values 2D ECHO LVOT Diameter 2.2 cm LV Ejection Fraction MOD 4C 56.5 % LV Ejection Fraction MOD 2C 69.7 % LV Ejection Fraction 2C AL 71.7 % LA Diameter 3.5 cm RA Systolic Volume 4C AL 51.2 ml RA Systolic Volume 4C MOD 48.0 ml LA Sys Volume AL 67.5 cm cubed LA Sys Volume Index AL 34.7 cm cubed/m squared Aorta at Sinotubular Diameter 2.5 cm M-MODE LA Ao Ratio MM 1.0 AV Cusp Separation MM 1.9 cm DOPPLER AV Peak Velocity 130.0 cm/s LVOT Peak Velocity 98.0 cm/s AV Area Cont Eq vti 3.5 cm squared AV Area Cont Eq pk 2.8 cm squared MV Peak Velocity 98.0 cm/s MV Area PHT 3.0 cm squared Mitral E to A Ratio 0.8 TR Peak Velocity 262.0 cm/s TR Peak Gradient 27.5 mmHg TR Mean Velocity 201.0 cm/s TR Mean Gradient 17.7 mmHg TR Velocity Time Integral 67.7 cm TV Peak E Velocity 79.0 cm/s PV Peak Velocity 98.0 cm/s FINDINGS Left Ventricle Normal left ventricular size and systolic function, EF 57% . Grade I/IV diastolic dysfunction (abnormal relaxation filling pattern), normal to mildly elevated filling pressures. Right Ventricle The right ventricle is normal in size and function. Right Atrium The right atrium is normal in size. Left Atrium Moderately increased left atrial size. Mitral Valve Trace to mild mitral valve regurgitation. Aortic Valve Thickened aortic valve. Tricuspid Valve Trace tricuspid valve regurgitation. Pulmonic Valve Pulmonic valve not well visualized. Pericardium Normal pericardium without effusion. Aorta Normal ascending aorta dimension. IVC Inferior vena cava not visualized. CONCLUSIONS Normal left ventricular size and systolic function, EF 57% . Grade I/IV diastolic dysfunction (abnormal relaxation filling pattern), normal to mildly elevated filling pressures. Moderately increased left atrial size. Trace to mild mitral valve regurgitation. Thickened aortic valve. Trace tricuspid valve regurgitation. Estimated pulmonary artery peak systolic pressure 31 mmHg There is no pericardial effusion. There are no intracardiac masses. No similar previous studies are available for comparison Dr Farrah Lua MD [facility] (Electronically Signed) Final Date: 05 August 2024 16:08 S
== END 2024-07-27 09:07 | disposition home or self-care (01) ==
PROVIDERS: PCP Family Medicine; Visit Provider Internal Medicine Cardiovascular Disease
DX: R06.09 Other forms of dyspnea (principal); I50.30 Unspecified diastolic (congestive) heart failure; I51.7 Cardiomegaly; I35.8 Other nonrheumatic aortic valve disorders
CPT/HCPCS: 93306

== ENCOUNTER 2024-07-30 08:59 | Outpatient (CLI) | payer MEDICARE, OTHER, SELFPAY ==
--- NOTE | 2024-07-30 09:30 | USCV_ITS ---
Lashay Castro Age: 74 Gender: F : 1950 Exam Date: 07/30/2024 09:48 Ordering Phys: Farrah Lua MD ([email or web address]) Technologist: USR Exam Location: [facility] [place] Indication: HISTORY: PROCEDURES: FINDINGS: The veins were found to be easily compressible with spontaneous blood flow. Non pulsatile flow pattern. The greater saphenous vein on the right side downgraded from the mid greater saphenous vein segment on versus was found to be of small caliber and mostly superficial. The small saphenous vein was found to be patent. On the left side, no greater saphenous vein segments were visualized. The greater saphenous vein just distal to the saphenofemoral junction was found to be patent. The small saphenous veins also were found to be patent with no evidence of insufficiency. CONCLUSIONS 1. The greater saphenous vein deep venous, greater saphenous vein and small saphenous vein segments on the round right side was found to be patent with no evidence of any significant insufficiency. 2. The greater saphenous vein on the left side was found to be missing. Patent small saphenous vein. No significant venous reflux were noted. 3. No evidence of deep vein thrombosis in the above-mentioned veins. Dr Farrah Lua MD [facility] (Electronically Signed) Final Date: 05 August 2024 18:00 S
== END 2024-07-30 09:00 | disposition home or self-care (01) ==
LOC: RAD 09:00
PROVIDERS: PCP Family Medicine; Visit Provider Internal Medicine Cardiovascular Disease
DX: R06.02 Shortness of breath (principal)
CPT/HCPCS: 93970

== ENCOUNTER → 2024-10-05 16:08 | Outpatient (BNVA) | payer MEDICARE, SELFPAY | PROVIDERS: PCP Family Medicine; Visit Provider Internal Medicine Cardiovascular Disease | DX: R00.0 Tachycardia, unspecified (principal); R07.89 Other chest pain; I10 Essential (primary) hypertension; J44.9 Chronic obstructive pulmonary disease, unspecified | CPT/HCPCS: 99214 ==

== ENCOUNTER → 2024-10-13 09:21 | Outpatient (BNVA) | payer MEDICARE, SELFPAY | PROVIDERS: PCP Family Medicine; Visit Provider Podiatrist Foot & Ankle Surgery | DX: G57.63 Lesion of plantar nerve, bilateral lower limbs (principal) | CPT/HCPCS: 99213 ==

== ENCOUNTER 2024-10-20 07:25 | Outpatient (CLI) | payer MEDICARE, SELFPAY ==
--- NOTE | 2024-10-20 | ECG_ITS ---
Ablynx Rewalon Test Date: 2024-10-20 Pat Name: Lashay Castro Department: Room: Gender: Female Ventilation Equipment Tender: : 1950 Requested By: Pantera Hubbard Order Number: [id number] Marita MD: Paco Funes M.D. Interpretive Statements LEXISCAN: Procedure: At the baseline, the blood pressure was 134/84 mmHg with a heart rate of 66 bpm. The electrocardiogram showed normal sinus rhythm, normal axis with normal ST and T's. The Lexiscan was infused over a period of 20 seconds. A total of 0.4 mg of Lexiscan was infused. The stress phase was continued for a total of 5 minutes. Heart rate was at the end of stress phase was 73 bpm and a blood pressure of 135/74mmHg. The EKG at the peak infusion revealed normal sinus rhythm with no significant ST-T wave changes. Sestamibi was injected 20 seconds after the Lexiscan infusion. Blood pressure at the end of recovery phase was 109/67 mmHg with a heart rate of 70 bpm. Conclusion: 1. Normal EKG response to Lexiscan infusion 2. No Lexiscan induced chest pain or cardiac arrhythmia. 3. Normal blood pressure and heart rate response. 4. Sestamibi/sestamibi perfusion scan pending; see separate report. Electronically Signed On 10-31-2024 01:59:35 CDT by Paco Funes M.D. [email or web address]
[2024-10-20 07:47] VITALS: BMI 30.7
--- NOTE | 2024-10-20 07:50 | NMCV_ITS ---
NM jong perf SPECT r/s* [id number] Lashay Castro Age: 74 Gender: F : 1950 Exam Date: 10/20/2024 07:50 Ordering Phys: Pantera Hubbard MD ([email or web address]) Technologist: KEISHA Huang Exam Location: [facility] Indications: cp STRESS TEST Please [facility] IMAGE PROTOCOL Rest/Stress 1 Lexiscan Day Radiopharmaceutical Dose (mCi) Administration Site Administered by Rest: Tc-99m 10.6 IV Kelly Curry TERRAZZO MECHANIC HELPER Sestamibi Stress:Tc-99m 32.3 IV Kelly Curry, TERRAZZO MECHANIC HELPER Sestamibi Rest: 20-Oct-2024 60 Discovery 630 Stress: 20-Oct-2024 30 Discovery 630 0.4mg Lexiscan. Images obtained in supine and prone position. SPECT RESULTS Technical Quality: Good Raw Data Analysis: Normal Image Corrections: No attenuation or motion correction applied Summed Stress Score: 1 Summed Rest Score: 1 Summed Difference Score: 0 PERFUSION FINDINGS There is a small sized area of reduced radiotracer uptake seen in inferolateral wall. This resolves on prone imaging. This is consistent with attenuation artifact. FUNCTIONAL RESULTS (calculated via Gated SPECT) Stress Image LV EF (%): 75 Stress EDV (mL):73 TID: 1.03 Stress ESV (mL):18 FUNCTIONAL FINDINGS: There is normal left ventricular systolic function. IMPRESSIONS 1. Attenuation artifact seen in the inferolateral wall. no evidence of ischemia 2. LV systolic function is normal Paco Funes MD (Electronically Signed) Final Date: 21 October 2024 12:48 S
[2024-10-20] MEDS: regadenoson 0.4 Mg/5 ml Syringe IVP (09:22)
[2024-10-20 09:38] VITALS: BP 109/67; PULSE 75
== END 2024-10-20 07:26 | disposition home or self-care (01) ==
LOC: CDL 07:26
PROVIDERS: PCP Family Medicine; Visit Provider Internal Medicine Cardiovascular Disease
DX: R06.02 Shortness of breath (principal); R07.9 Chest pain, unspecified
CPT/HCPCS: 36415; 78452; 93017; 96374; A9500; J2785

== ENCOUNTER 2024-10-20 11:23 | Emergency (ER) | payer MEDICARE, SELFPAY ==
[2024-10-20 11:36] VITALS: BP 148/71; PULSE 75; RESP 17; TEMP 36.4; O2SAT 92; BMI 30.7
--- NOTE | 2024-10-20 11:41 | W.ED.EXTPRO ---
HPI - Extremity Problem General: Chief complaint: Extremity Problem,Nontraumatic Stated complaint: swelling right foot/leg Time Seen by Provider: 10/20/24 11:38 History of Present Illness: 72-year-old female presents to the emergency room complaining of right leg swelling and discomfort she has stress test earlier today. She has not had any shortness of breath or chest pain no history of DVT or PE. Associated symptoms: Deny chest pain, fever(s) or rash Related Data Home Medications ?Medication ?Instructions ?Recorded ?Confirmed cholecalciferol (vitamin D3) 125 5,000 unit PO DAILY 08/17/19 10/20/24 mcg (5,000 unit) capsule furosemide 20 mg tablet 20 mg PO QAM 08/17/19 10/20/24 mirabegron 25 mg tablet,extended 25 mg PO Q24H 08/17/19 10/20/24 release 24 hr (Myrbetriq) potassium chloride 10 mEq 10 meq PO DAILY 08/17/19 10/20/24 capsule,extended release dexlansoprazole 30 mg 30 mg PO DAILY 07/22/23 10/20/24 capsule,biphase delayed release (Dexilant) aspirin 81 mg tablet,delayed 81 mg PO DAILY 10/05/24 10/20/24 release atorvastatin 40 mg tablet (Lipitor) 40 mg PO DAILY 10/05/24 10/20/24 tizanidine 4 mg capsule 4 mg PO BID PRN Muscle Spasm 10/05/24 10/20/24 calcium polycarbophil 625 mg 1,250 mg PO BEDTIME 10/20/24 10/20/24 tablet (Fiber-Tabs) cyanocobalamin (vitamin B-12) 1,000 mcg IM .QMONTHLY 10/20/24 10/20/24 1,000 mcg/mL injection solution diltiazem HCl 180 mg 180 mg PO QAM 10/20/24 10/20/24 capsule,extended release 24 hr Previous Rx's ?Medication ?Instructions ?Recorded Sole supports #1 ea 06/13/20 Hinged knee brace #1 ea 03/31/24 isosorbide mononitrate 30 mg 30 mg PO DAILY #90 tabs 10/05/24 tablet,extended release 24 hr metoprolol succinate 25 mg 25 mg PO DAILY #90 tabs 10/05/24 tablet,extended release 24 hr diclofenac sodium 1 % topical gel 4 g topical QID #100 grams 10/13/24 (Voltaren Arthritis Pain) Allergies Allergy/AdvReac Type Severity Reaction Status Date / Time acetaminophen (From Allergy Unknown Verified 10/13/24 09:23 Darvocet-N 100) atropine (From Lomotil) Allergy Unknown Verified 10/13/24 09:23 carbamazepine Allergy Unknown Verified 10/13/24 09:23 cephalexin (From Keflex) Allergy Unknown Verified 10/13/24 09:23 codeine Allergy Unknown Verified 10/13/24 09:23 diphenoxylate (From Lomotil) Allergy Unknown Verified 10/13/24 09:23 gabapentin (From Neurontin) Allergy Unknown Verified 10/13/24 09:23 Influenza Virus Vaccines Allergy Unknown Verified 10/13/24 09:23 penicillin G Allergy Unknown Verified 10/13/24 09:23 propoxyphene (From Allergy Unknown Verified 10/13/24 09:23 Darvocet-N 100) Review of Systems Const: Denies: fever(s) or chills Card: Denies: chest pain Resp: Denies: dyspnea GI: Denies: abdominal pain : Denies: dysuria, urinary frequency or urinary urgency Musc: Reports: extremity swelling (Right leg); Denies: neck pain or back pain Skin/Breast: Denies: rash PFSH ED PFSH: Medical History COPD (chronic obstructive pulmonary disease) PVD (peripheral vascular disease) Dysphagia Multiple sclerosis Obstructive sleep apnea Keratosis Venous insufficiency of both lower extremities Diverticulosis Surgical History History of arthroscopy of knee (~2010) Left History of knee replacement (09/03/06) Right History of hysterectomy History of tonsillectomy (~1970) History of adenoidectomy (~1970) History of appendectomy History of carpal tunnel release History of shoulder surgery History of colon resection History of neck surgery History of Pepper fundoplication History of bunionectomy (~2013) left History of colonoscopy (07/12/19) 07/12/19 Repeat in 10 years History of esophagogastroduodenoscopy (EGD) (07/12/19) 07/12/19 Family History Sister Cancer Family/Other Cancer Maternal Aunt Family/Other Cancer Paternal Uncle Father Diabetes Other Heart disease Denies family history of Anesthesia complication Bleeding disorder Social History Smoking and tobacco/nicotine status: former use of tobacco/nicotine Alcohol intake: current Alcohol intake frequency: holidays/special occasions only Substance/Drug Use: never Lives independently: Yes Household members: spouse Marital status: Current occupational status: retired Physical Exam Const: COMMON NORMALS: no acute distress GENERAL APPEARANCE: cooperative and comfortable ORIENTATION/CONSCIOUSNESS: Yes awake, Yes oriented to person, Yes oriented to place and Yes oriented to time HENMT: COMMON NORMALS: normocephalic, atraumatic and hearing grossly normal bilaterally HEAD & SCALP: normocephalic and atraumatic Resp: COMMON NORMALS: normal respiratory effort, No retractions, No use of accessory muscles and clear to auscultation bilaterally AUSCULTATION: clear to auscultation bilaterally Cardio: COMMON NORMALS: regular rate, regular rhythm and No murmurs present (Cardio) RATE: regular rate RHYTHM: regular rhythm GI: COMMON NORMALS: Soft to palpation and No hepatosplenomegaly present AUSCULTATION: Yes normoactive bowel sounds PALPATION: Yes Soft to palpation, No Tenderness to palpation present (GI), No Guarding due to palpation present (GI) and Yes No hepatosplenomegaly present Extremity: COMMON NORMALS: normal to inspection, capillary refill normal and no calf tenderness OTHER: Mild right leg swelling no pitting edema negative Homans Neuro: SENSORIUM/ORIENTATION: Yes oriented to person, Yes oriented to place and Yes oriented to time Skin: COMMON NORMALS: no rashes or lesions noted GENERAL SKIN EXAM: no rashes or lesions noted Course Vital Signs: Vital signs: Vital Signs Temperature 97.6 F 10/20/24 11:36 Pulse Rate 71 10/20/24 12:45 Respiratory Rate 17 10/20/24 11:36 Blood Pressure 140/72 10/20/24 12:45 Pulse Oximetry 95 10/20/24 12:45 Oxygen Delivery Me thod Room Air 10/20/24 11:36 MDM - Extremity (Nontraumatic) Medical Decision Making Venous duplex negative. No significant edema no pitting edema recommend elevate. Follow-up with primary care. Medical Records I reviewed the patient's medical records. Lab Data I reviewed the patient's lab results. All radiology interpretation(s) finalized by discharge Discharge Plan Discharge Patient Disposition: Home Clinical Impression: Leg swelling Condition: Stable Prescriptions: No Action furosemide 20 mg tablet 20 mg PO QAM Myrbetriq 25 mg tablet extended release 24 hr 25 mg PO Q24H potassium chloride 10 mEq capsule, extended release 10 meq PO DAILY cholecalciferol (vitamin D3) 5,000 unit capsule 5,000 unit PO DAILY (DME) Sole supports See Rx Instructions .Route .MEDSUPPLY Qty: 1 0RF Rx Instructions: As directed dexlansoprazole [Dexilant] 30 mg capsule,biphase delayed releas 30 mg PO DAILY (DME) Hinged knee brace See Rx Instructions .ROUTE .MEDSUPPLY Qty: 1 0RF Rx Instructions: left total knee diclofenac sodium [Voltaren Arthritis Pain] 1 % gel 4 g topical QID Qty: 100 0RF Rx Instructions: apply to single knee, ankle, foot; for foot includes sole/toes/top of foot atorvastatin [Lipitor] 40 mg tablet 40 mg PO DAILY aspirin 81 mg tablet,delayed release (DR/EC) 81 mg PO DAILY tizanidine 4 mg capsule 4 mg PO BID PRN (Reason: Muscle Spasm) isosorbide mononitrate 30 mg tablet extended release 24 hr 30 mg PO DAILY Qty: 90 3RF metoprolol succinate 25 mg tablet extended release 24 hr 25 mg PO DAILY Qty: 90 3RF diltiazem HCl 180 mg capsule,extended release 24hr 180 mg PO QAM cyanocobalamin (vitamin B-12) [Vitamin B-12] 1,000 mcg/mL Solution 1,000 mcg IM .QMONTHLY calcium polycarbophil [Fiber-Tabs] 625 mg Tablet 1,250 mg PO BEDTIME Discharge Orders: Discharge ED (Routine); Ordered 10/20/24 Ordered By: Prabhjot Ingram Referrals: Tran Rob MD [Primary Care Provider] - Patient Instructions: Opioid Safety, Pain Management Activity Restrictions/Additional Instructions: Thank you for choosing [facility] for your healthcare needs today. It is very important that you follow up as instructed or that you return to the Emergency Department should you have concerns or if your condition changes or worsens in any way. You are seen emergency room with complaint of swelling in your leg. You do have a moderate amount of swelling in the right leg ultrasound did not show any signs of DVT. There is no sign of infection. Some of it may be due to venous insufficiency. Follow-up with your primary care doctor. Print Language: Chinese Coding Level of Care Code ED Steel Rule Die Maker Apprentice for Derick Howard
--- NOTE | 2024-10-20 11:45 | USCV_ITS ---
Lashay Castro Age: 74 Gender: F : 1950 Exam Date: 10/20/2024 12:00 Ordering Phys: Prabhjot Ingram DO Technologist: Exam Location: [facility] [place] Indication: rt leg pain and swelling PROCEDURES: Venous duplex imaging was performed in only the right lower extremity. The following venous structures were evaluated: common femoral vein, profunda vein, proximal portion of the greater saphenous vein, superficial femoral vein, and the popliteal vein. In addition, the posterior tibial veins were evaluated. FINDINGS: Normal 2-D Doppler and augmentation and compressibility throughout the lower extremity venous structures. Additional imaging through the proximal calf veins also reveals no thrombus. Limited evaluation of the greater saphenous vein is patent with no thrombus. CONCLUSIONS No evidence of right lower extremity DVT. Cullen Lindo MD (Electronically Signed) Final Date: 20 October 2024 16:28 S
[2024-10-20 12:45] VITALS: BP 140/72; PULSE 71; O2SAT 95
== END 2024-10-20 12:45 | disposition home or self-care (01) ==
PROVIDERS: Emergency Provider Family Medicine; PCP Family Medicine
DX: R60.0 Localized edema (principal); Z87.891 Personal history of nicotine dependence; J44.9 Chronic obstructive pulmonary disease, unspecified; M79.604 Pain in right leg
CPT/HCPCS: 93971; 99284

== ENCOUNTER → 2024-10-28 10:26 | Outpatient (BNVA) | payer MEDICARE, SELFPAY | PROVIDERS: PCP Family Medicine; Visit Provider Nurse Practitioner Family | DX: D18.01 Hemangioma of skin and subcutaneous tissue (principal); L81.4 Other melanin hyperpigmentation; X32.XXXA Exposure to sunlight, initial encounter; L80 Vitiligo; L57.8 Other skin changes due to chronic exposure to nonionizing radiation; L82.0 Inflamed seborrheic keratosis; R20.9 Unspecified disturbances of skin sensation; R20.8 Other disturbances of skin sensation; L29.89 Other pruritus; L53.8 Other specified erythematous conditions | CPT/HCPCS: 17110; 99213 ==

== ENCOUNTER → 2024-11-15 09:04 | Outpatient (BNVA) | payer MEDICARE, SELFPAY | PROVIDERS: PCP Family Medicine; Visit Provider Internal Medicine | DX: R00.1 Bradycardia, unspecified (principal) ==

== ENCOUNTER → 2024-11-25 09:14 | Outpatient (BNVA) | payer MEDICARE, SELFPAY | PROVIDERS: PCP Family Medicine; Visit Provider Podiatrist Foot & Ankle Surgery | DX: L84 Corns and callosities (principal); G57.63 Lesion of plantar nerve, bilateral lower limbs | CPT/HCPCS: 99213 ==

== ENCOUNTER → 2024-12-28 09:21 | Outpatient (BNVA) | payer MEDICARE, SELFPAY | PROVIDERS: PCP Family Medicine; Visit Provider Nurse Practitioner Family | DX: R07.89 Other chest pain (principal); I10 Essential (primary) hypertension; R00.0 Tachycardia, unspecified | CPT/HCPCS: 99213 ==

== ENCOUNTER → 2025-01-05 09:53 | Outpatient (BNVA) | payer MEDICARE, OTHER, SELFPAY | PROVIDERS: PCP Family Medicine; Visit Provider Podiatrist Foot & Ankle Surgery | DX: G57.63 Lesion of plantar nerve, bilateral lower limbs (principal); L84 Corns and callosities | CPT/HCPCS: 99213 ==

== ENCOUNTER → 2025-01-31 09:10 | Outpatient (BNVA) | payer MEDICARE, OTHER, SELFPAY | PROVIDERS: PCP Family Medicine; Visit Provider Specialist | DX: Z96.659 Presence of unspecified artificial knee joint (principal); M23.52 Chronic instability of knee, left knee | CPT/HCPCS: 73560; 73565; 99214 ==

== ENCOUNTER → 2025-02-16 09:20 | Outpatient (BNVA) | payer MEDICARE, OTHER, SELFPAY | PROVIDERS: PCP Family Medicine; Visit Provider Podiatrist Foot & Ankle Surgery | DX: G57.63 Lesion of plantar nerve, bilateral lower limbs (principal); L84 Corns and callosities | CPT/HCPCS: 99213 ==

== ENCOUNTER → 2025-03-29 09:29 | Outpatient (BNVA) | payer MEDICARE, OTHER, SELFPAY | PROVIDERS: PCP Family Medicine; Visit Provider Podiatrist Foot & Ankle Surgery | DX: G57.63 Lesion of plantar nerve, bilateral lower limbs (principal); L84 Corns and callosities | CPT/HCPCS: 99213 ==

== ENCOUNTER → 2025-04-05 10:44 | Outpatient (BNVA) | payer MEDICARE, OTHER, SELFPAY | PROVIDERS: PCP Family Medicine; Visit Provider Nurse Practitioner Family | DX: D18.01 Hemangioma of skin and subcutaneous tissue (principal); L81.4 Other melanin hyperpigmentation; X32.XXXA Exposure to sunlight, initial encounter; L80 Vitiligo; L57.8 Other skin changes due to chronic exposure to nonionizing radiation; L82.0 Inflamed seborrheic keratosis; L29.89 Other pruritus; R20.9 Unspecified disturbances of skin sensation; R20.8 Other disturbances of skin sensation; R23.8 Other skin changes; L53.8 Other specified erythematous conditions | CPT/HCPCS: 17110; 99213 ==

== ENCOUNTER → 2025-04-06 11:40 | Outpatient (BNVA) | payer MEDICARE, OTHER, SELFPAY | PROVIDERS: PCP Family Medicine; Visit Provider Internal Medicine Cardiovascular Disease | DX: I25.10 Atherosclerotic heart disease of native coronary artery without angina pectoris (principal); E78.5 Hyperlipidemia, unspecified; R00.2 Palpitations; I34.0 Nonrheumatic mitral (valve) insufficiency; I11.9 Hypertensive heart disease without heart failure | CPT/HCPCS: 99214 ==